=== PATIENT | female | born 1980 | race African-American/Black ===

== ENCOUNTER 2019-05-21 17:00 | Emergency (ER) | payer OTHER ==
[~2019-05-21] VITALS: Ht 167.6 cm; Wt 104.3 kg
[~2019-05-21 17:00] MED LIST: ACCUNEB SO1.25 MG/1 INH; BENADRYL25 MG PO; IBUPROFEN 800800 MG PO; MEDROLDOSEPACK PO; NORCO 5-325 TA1 EACH PO; PROVENTIL HFA6.7 G1 INH; TESSALON PERLE100 MG PO; VENTOLIN HFA 1818 GM INH; ZPAK PO
[2019-05-21] MEDS ORDERED: BREO ELLIPTA 11 EACH INH (17:49)
[2019-05-21 18:58] VITALS: BP 132/89
== END 2019-05-21 18:58 | disposition home or self-care (01) ==
LOC: ER 17:00
DX: S66.197A Other injury of flexor muscle, fascia and tendon of left little finger at wrist and hand level, initial encounter (principal); J45.909 Unspecified asthma, uncomplicated; Z90.710 Acquired absence of both cervix and uterus; Y08.89XA Assault by other specified means, initial encounter; Y93.89 Activity, other specified; Y92.89 Other specified places as the place of occurrence of the external cause; Y99.8 Other external cause status

== ENCOUNTER 2019-12-03 20:00 | Emergency (ER) | payer OTHER ==
[~2019-12-03] VITALS: Ht 167.6 cm; Wt 113.4 kg
[~2019-12-03 20:00] MED LIST changes: +BREO ELLIPTA 11 EACH INH
[2019-12-03 21:00] LABS: ABSOLUTE NEUTROPHILS 11.1 thou/uL (1.4-8.2); BASOPHILS 0.5 % (0.0-2.0); EOSINOPHILS 0.2 % (0.0-3.0); HEMATOCRIT 39.8 % (37.0-47.0); HEMOGLOBIN 13.5 gm/dL (12.0-15.0); LYMPHOCYTES 15.6 % (24.0-44.0); MCH 29.8 pg (26.0-34.0); MCHC 33.9 g/dL (28.0-37.0); MCV 87.9 fL (80.0-100.0); MONOCYTES 7.6 % (1.0-8.0); PLATELET COUNT 243 thou/uL (150-400); POLYS 76.1 % (36.0-66.0); RBC 4.53 mil/uL (4.20-5.00); RDW 13.6 % (10.5-14.5); WBC 14.6 thou/uL (4.0-11.0)
[2019-12-03 21:25] LABS: CALCIUM 8.9 mg/dL (8.5-10.1); CREATININE 0.9 mg/dL (0.6-1.0); POTASSIUM 3.4 mmol/L (3.5-5.1)
[2019-12-03] MEDS ORDERED: CLEOCIN HCL300 MG PO (21:27)
[2019-12-03] MEDS ORDERED: PREDNISONE 20 M20 MG PO (22:37)
[2019-12-03] MEDS ORDERED: TRAMADOL 50 MG50 MG PO (22:37)
[2019-12-03] MEDS ORDERED: MAGIC MOUTHWASH SW&SWALLOW (22:37)
[2019-12-03 23:04] VITALS: BP 148/90
== END 2019-12-03 23:05 | disposition home or self-care (01) ==
LOC: ER 20:00
PROVIDERS: Emergency Medicine
DX: J03.80 Acute tonsillitis due to other specified organisms (principal); B96.89 Other specified bacterial agents as the cause of diseases classified elsewhere; J45.909 Unspecified asthma, uncomplicated; Z79.899 Other long term (current) drug therapy; Z90.710 Acquired absence of both cervix and uterus